=== PATIENT | female | born 1980 | race Caucasian/White ===

== ENCOUNTER 2016-12-16 15:04 | Emergency (ER) | payer OTHER | END 2016-12-16 18:09 | disposition home or self-care (01) | LOC: ER1 15:04 | DX: S60.512A Abrasion of left hand, initial encounter (principal); S50.812A Abrasion of left forearm, initial encounter; F17.210 Nicotine dependence, cigarettes, uncomplicated; V29.9XXA Motorcycle rider (driver) (passenger) injured in unspecified traffic accident, initial encounter; Y93.55 Activity, bike riding; Y92.410 Unspecified street and highway as the place of occurrence of the external cause | CPT/HCPCS: 73080; 73090; 73110; 73130; 73564; 84703; 99283 ==

== ENCOUNTER → 2021-10-25 | Outpatient (CLI) | payer OTHER | LOC: EXRD 10:56 | DX: R10.2 Pelvic and perineal pain (principal); N83.201 Unspecified ovarian cyst, right side | CPT/HCPCS: 76856 ==